=== PATIENT | female | born 1955 ===

== ENCOUNTER 2017-06-23 18:10 | Emergency (ER) | payer MEDICAID, OTHER ==
[2017-06-23 18:26] VITALS: TEMP 98.4; O2SAT 97
[2017-06-23] MEDS ORDERED: Sodium Chloride 0.9% 1,000 ML IV ONE (19:53)
[2017-06-23] MEDS ORDERED: cefTRIAXone IV 1 gm in Dextros 50 ML IV ONE (19:54)
[2017-06-23] MEDS ORDERED: Azithromycin 500 MG in Sodium Chloride 0.9% 250 ML IV STA (19:54)
[2017-06-23 20:12] LABS: BASO # 0.1 K/uL (0.0-0.2); BASO % 0.6 % (0.0-2.0); EOS # 0.7 K/uL (0.0-0.7); EOS % 6.3 % (0.0-4.0); HEMATOCRIT 42.8 % (34.0-47.0); LYMPH # 2.2 K/uL (1.0-4.3); LYMPH % 19.7 % (20.0-40.0); MEAN CELL VOLUME 89.6 fL (81.0-99.0); MEAN CORPUSCULAR HEMOGLOBIN 29.3 pg (27.0-31.0); MEAN CORPUSCULAR HGB CONC 32.7 g/dL (33.0-37.0); MEAN PLATELET VOLUME 11.1 fL (7.2-11.7); MONO # 0.7 K/uL (0.0-0.8); MONO % 5.9 % (0.0-10.0); NRBC % 0.1 % (0.0-2.0); RED CELL DISTRIBUTION WIDTH 13.8 % (11.5-14.5); WHITE BLOOD COUNT 11.3 K/uL (4.8-10.8)
[2017-06-23 20:23] LABS: RBC URINE 1 /hpf (0-3); URINE BACTERIA FEW (<OCC); URINE BILIRUBIN NEGATIVE (NEGATIVE); URINE BLOOD NEGATIVE (NEGATIVE); URINE COLOR Yellow (YELLOW); URINE GLUCOSE (UA) NORMAL (Normal); URINE KETONE NEGATIVE (NEGATIVE); URINE LEUKOCYTE ESTERASE 3+ Leu/uL (Negative); URINE PROTEIN NEGATIVE (NEGATIVE); URINE UROBILINOGEN NORMAL mg/dL (0.2-1.0); WBC URINE 141 /hpf (0-5)
[2017-06-23 20:26] LABS: CHLORIDE 103 mmol/L (98-107); POTASSIUM 3.7 mmol/L (3.6-5.2); SODIUM 137 mmol/L (132-148)
[2017-06-23 20:28] LABS: BILIRUBIN,TOTAL 0.6 mg/dL (0.2-1.3); GFR AFRICAN-AMERICAN 42
[2017-06-23 20:29] LABS: ALB/GLOB RATIO 1.1 (1.0-2.1); ALKALINE PHOSPHATASE 148 U/L (38-126); ALT/SGPT 40 U/L (9-52); AST/SGOT 24 U/L (14-36); BLOOD UREA NITROGEN 20 mg/dL (7-17); CARBON DIOXIDE 22 mmol/L (22-30); GLUCOSE,RANDOM 100 mg/dL (65-105); TOTAL PROTEIN 8.5 g/dL (6.3-8.3)
[2017-06-23 20:30] LABS: CALCIUM 10.2 mg/dl (8.6-10.4)
[2017-06-23] MEDS ORDERED: cefTRIAXone IV 1 gm in Dextros 50 ML IVPB ONE (20:31)
[2017-06-23] MEDS ORDERED: Azithromycin 500mg/250ML NS 500 MG/250 ML BAG IVPB ONE (20:31)
[2017-06-23 20:44] VITALS: BP 135/79; PULSE 77; RESP 18
--- NOTE | 2017-06-23 20:44 | C.PDOC ---
History Of Present Illness 62 y/o female with no Hx of COPD, c/o dry, non-productive cough and pleuritic pain with cough for 3 days. Patient is taking OTC meds intermittently. Denies fever or chills. No palpitations, or diaphoresis. Time Seen by Provider: 06/23/17 19:49 Chief Complaint (Nursing): Shortness Of Breath History Per: Patient History/Exam Limitations: no limitations Onset/Duration Of Symptoms: Days (3) Current Symptoms Are (Timing): Still Present Severity: Mild Recent travel outside of the [place]: No Additional History Per: Patient Past Medical History Reviewed: Historical Data, Nursing Documentation, Vital Signs Vital Signs: Last Vital Signs Temp 98.4 F 06/23/17 18:24 Pulse 77 06/23/17 20:43 Resp 18 06/23/17 20:43 BP 135/79 06/23/17 20:43 Pulse Ox 97 06/23/17 20:48 - Medical History PMH: Arthritis, Asthma, Bronchitis, Diabetes, HTN, Hypercholesterolemia Family History: States: Unknown Family Hx - Social History Hx Tobacco Use: Yes Hx Alcohol Use: Yes Hx Substance Use: No - Immunization History Hx Tetanus Toxoid Vaccination: No Hx Influenza Vaccination: No Hx Pneumococcal Vaccination: No Review Of Systems Except As Marked, All Systems Reviewed And Found Negative. Constitutional: Negative for: Fever, Chills, Sweats Cardiovascular: Positive for: Chest Pain (Pleuritic pain with cough). Negative for: Palpitations Respiratory: Positive for: Cough Physical Exam - Physical Exam Appears: Non-toxic, No Acute Distress Skin: Warm, Dry Head: Atraumatic, Normacephalic Chest: Symmetrical Cardiovascular: Rhythm Regular Respiratory: No Rales, Rhonchi (Mild, scattered), Wheezing, Other (Cough. No egophony) Neurological/Psych: Oriented x3 ED Course And Treatment - Laboratory Results Result Diagrams: 06/23/17 20:06 06/23/17 20:06 Lab Interpretation: Abnormal (UA 141 WBC's, mild leukocytosis without L shift) ECG: Interpreted By Me ECG Rhythm: Sinus Rhythm O2 Sat by Pulse Oximetry: 97 (RA) Pulse Ox Interpretation: Normal - Radiology CXR: Interpreted by Me CXR Interpretation: Yes: No Acute Disease Reevaluation Time: 20:45 Reassessment Condition: Improved Medical Decision Making Medical Decision Making: mild/mod UTI- Bactrim NO L-shift mild leukocytosis, prob related to steroids given in ED viral syndrome, no s/s of COPD, no nebs treatments x 4 yrs. MDI and OTC flu/cold meds, flu neg. Disposition Doctor Will See Patient In The: Office Counseled Patient/Family Regarding: Studies Performed, Diagnosis - Disposition Referrals: Refugio De Souza MD [Medical Doctor] - Disposition: HOME/ ROUTINE Disposition Time: 20:47 Condition: GOOD Additional Instructions: UTI: Sigue Bactrim DS (antibiotico) 2 veces al darren para cumplir 5 nichole Bronchitis: El Bactrim te va ayudar con esto tambien Sigue Dayquil/Nyquil para morgan tos Sigue con morgan medico en 3 nichole para re-evaluacion seth necessario. Prescriptions: Sulfamethoxazole/Trimethoprim [Bactrim DS 800 mg-160 mg] 1 tab PO BID #9 tab Instructions: Urinary Tract Infection in Women (ED), Acute Bronchitis (ED), Viral Syndrome (ED) Forms: [employer] (Georgian) Print Language: MALAY - Clinical Impression Clinical Impression: Bronchitis, UTI (urinary tract infection) - Scribe Statement The provider has reviewed the documentation as recorded by the Scribe Pamella rascon All medical record entries made by the Scribe were at my direction and personally dictated by me. I have reviewed the chart and agree that the record accurately reflects my personal performance of the history, physical exam, medical decision making, and the department course for this patient. I have also personally directed, reviewed, and agree with the discharge instructions and disposition.
[2017-06-23] MEDS ORDERED: guaiFENesin 100 mg/5 ml Syrup UD PO STA (20:46)
[2017-06-23] MEDS ORDERED: Tmp-Smz 800 mg-160 mg DS Tab PO STA (20:46)
[2017-06-23] MEDS ORDERED: Tmp-Smz 800 mg-160 mg DS Tab ONE (21:06)
[2017-06-23] MEDS ORDERED: guaiFENesin 100 mg/5 ml Syrup UD ONE (21:07)
--- NOTE | 2017-06-24 09:05 | RAD ---
HISTORY: SOB COMPARISON: Comparison is made to 03/27/2015 TECHNIQUE: Chest PA and lateral FINDINGS: LUNGS: No evidence of new infiltrate or consolidation in the lungs. PLEURA: No significant pleural effusion identified. No pneumothorax apparent. CARDIOVASCULAR: Normal. OSSEOUS STRUCTURES: No significant abnormalities. VISUALIZED UPPER ABDOMEN: Normal. OTHER FINDINGS: None. IMPRESSION: No active disease.
--- NOTE | 2017-06-24 21:41 | CARD ---
APPROVED REPORT EKG Measurement Heart [id number] <Conclusion> Normal sinus rhythm Normal ECG
== END 2017-06-23 21:14 | disposition home or self-care (01) ==
LOC: C.ER 18:10
DX: J40 Bronchitis, not specified as acute or chronic (principal); N39.0 Urinary tract infection, site not specified
CPT/HCPCS: 71020; 80053; 81001; 83880; 84484; 85025; 87804; 93005; 96361; 96374; 99285; J2930; J7040